=== PATIENT | female | born 1950 | race Caucasian/White ===

== ENCOUNTER 2018-11-30 06:50 | Emergency (ER) | payer MEDICARE, OTHER ==
[~2018-11-30] VITALS: Ht 172.7 cm; Wt 93.0 kg
--- NOTE | ~2018-11-30 | EKG ---
[place], [place] ELECTROCARDIOGRAM REPORT NAME: TOM CRAIG UNIT #: [id number] ROOM: DOCTOR: KIRSTEN DRAFT REPORT BIRTHDATE: [birth year] [facility] Test Date: 2018-11-30 Test Time: 07:51:23 Pat Name: TOM CRAIG Department: Room: Gender: F [employer]ck [employer]: Shelby Torres : 1950 Requested By: LINDA GARCIA Order Number: [id number] Reading MD: Candelario Meza MD Measurements Intervals [place] Rate: 86 P: 63 TN: 174 QRS: 24 QRSD: 93 T: 32 QT: 363 QTc: 434 Interpretive Statements Sinus rhythm No previous ECG available for comparison Electronically Signed On 12-02-2018 9:04:29 PDT by Candelario Meza MD CM:EKGRPT:ELECTROCARDIOGRAM REPORT [id number] LINDA NOGUERA DRAFT REPORT LINDA GARCIA DO
[~2018-11-30 06:50] MED LIST: HYDROCODONE BIT1 T11 PO; NKHM
[2018-11-30 07:55] LABS: BASO % 0.4 % (0.0-1.0); HEMATOCRIT 41.1 % (37.0-47.0); HEMOGLOBIN 13.6 g/dl (12.0-16.0); LYMPH # 0.9 10*3/uL (1.3-4.4); LYMPH % 12.1 % (27.0-41.0); MEAN CELL VOLUME 91.7 fl (81.0-99.0); MEAN CORPUSCULAR HGB 30.4 pg (27.0-31.0); MEAN CORPUSCULAR HGB CONC 33.1 g/dl (33.0-37.0); MEAN PLATELET VOLUME 8.6 fl (9.6-12.3); MONO # 0.2 10*3/uL (0.1-1.0); MONO % 2.1 % (3.0-9.0); NEUT % 84.8 % (47.0-73.0); PLATELET COUNT AUTOMATED 276 10*3/uL (130-400); RED BLOOD COUNT 4.48 10*6/uL (4.10-5.10); RED CELL DISTRI WIDTH 12.7 % (0-14.5); WHITE BLOOD COUNT 7.1 10*3/uL (4.8-10.8)
[2018-11-30 08:01] LABS: BILIRUBIN NEGATIVE (NEGATIVE); BLOOD 1+ (NEGATIVE); CLARITY SL CLOUDY (CLEAR); COLOR YELLOW (YELLOW); GLUCOSE TRACE (NEGATIVE); KETONE TRACE (NEGATIVE); LEUKO ESTERASE NEGATIVE (NEGATIVE); NITRITE NEGATIVE (NEGATIVE); PH 7.5 (5.0-9.0)
[2018-11-30 08:08] LABS: ACT PARTIAL THROMBO TIME 23.9 SECONDS (20.0-32.1); INTERNATIONAL NORM RATIO 0.9 (2.0-3.5)
[2018-11-30 08:08] LABS: RBC 21-30 rbc/hpf (0-2)
[2018-11-30 08:09] LABS: BACTERIA 1+; MUCOUS 1+
[2018-11-30 08:11] LABS: ALBUMIN 4.2 gm/dl (3.1-4.5); ALKALINE PHOSPHATASE 60 U/L (45-117); BUN 12 mg/dl (7-24); CHLORIDE 103 mmol/L (98-107); CREATININE 0.74 mg/dL (0.55-1.02); LIPASE 50 U/L (73-393); POTASSIUM 3.7 mmol/L (3.5-5.1); SGOT/AST 13 IU/L (3-35); SGPT/ALT 21 U/L (12-78); SODIUM 136 mmol/L (136-145); TOTAL PROTEIN 7.7 gm/dL (6.4-8.2)
[2018-11-30 08:12] LABS: TROPONIN I < 0.015 ng/ml (<0.045)
[2018-11-30] MEDS ORDERED: CYCLOBENZAPRINE10 MG PO (12:03)
[2018-11-30] MEDS ORDERED: PHENERGAN25 M3 PO (12:03)
[2018-11-30] MEDS ORDERED: Motrin,Rufen800 MG PO (12:03)
[2018-11-30 12:05] VITALS: BP 144/82
== END 2018-11-30 12:10 | disposition home or self-care (01) ==
LOC: ED 06:50
PROVIDERS: Emergency Medicine
DX: S39.012A Strain of muscle, fascia and tendon of lower back, initial encounter (principal); N83.202 Unspecified ovarian cyst, left side; D25.9 Leiomyoma of uterus, unspecified; M79.605 Pain in left leg; R11.2 Nausea with vomiting, unspecified; X58.XXXA Exposure to other specified factors, initial encounter; Y93.89 Activity, other specified; Y92.89 Other specified places as the place of occurrence of the external cause; Y99.8 Other external cause status